=== PATIENT | male | born 1950 | race Caucasian/White ===

== ENCOUNTER 2022-04-24 15:11 | Outpatient (REF) | payer MEDICARE, BC, SELFPAY ==
[2022-04-24 19:39] LABS: ALT 47 U/L (16-63); AST 31 U/L (15-37); Albumin 3.3 g/dL (3.4-5.0); Alkaline Phosphatase 92 U/L (46-116); Anion Gap 12.1 mmol/L (3-11); BUN 14 mg/dL (7-18); Bilirubin, Total 0.2 mg/dL (0.2-1.0); CO2 23.9 mmol/L (21.0-32.0); CREATININE 1.1 mg/dL (0.70-1.30); Calcium 9.4 mg/dL (8.5-10.1); Calculated LDL 77 mg/dL (<100); Chloride 103 mmol/L (98-107); Cholesterol 116 mg/dL (<200); Estimated GFR 71.77 (mL/min/1.73m2); Glucose 95 mg/dL (74-106); HDL Cholesterol 28 mg/dL (40-60); Potassium 4.1 mmol/L (3.5-5.1); Sodium 139 mmol/L (136-145); TSH 0.87 uIU/mL (0.36-3.74); Total Protein 8.3 g/dL (6.4-8.2); Triglyceride 56 mg/dL (<150)
[2022-04-25 20:25] LABS: PSA, Screening 2.8 ng/mL (<=6.5)
[2022-04-28 10:46] LABS: Lyme Ab w Rflx to Lyme Confirm Positive (Negative)
[2022-04-28 11:53] LABS: Lyme IgG Ab Positive (Negative); Lyme IgM Ab Positive (Negative)
== END 2022-04-24 15:12 | disposition home or self-care (01) ==
LOC: NCHCN 15:11
PROVIDERS: PCP Internal Medicine; Visit Provider Internal Medicine
DX: R63.4 Abnormal weight loss (principal); D22.5 Melanocytic nevi of trunk; Z12.5 Encounter for screening for malignant neoplasm of prostate; R79.89 Other specified abnormal findings of blood chemistry; Z11.8 Encounter for screening for other infectious and parasitic diseases
CPT/HCPCS: 80053; 80061; 84153; 86617; 87798; 84443; 85025; 86618

== ENCOUNTER 2022-04-25 13:22 | Outpatient (REF) | payer MEDICARE, BC, SELFPAY ==
[2022-04-25 19:24] LABS: Abs Immature Grans 0.05 10^3/uL (0.0-0.06); Absolute Basophil Count 0.07 10^3/uL (0.0-0.2); Absolute Eosinophil Count 0.07 10^3/uL (0.0-0.7); Absolute Monocyte Count 0.68 10^3/uL (0.1-0.8); Basophils % 0.6; Eosinophils % 0.6; HCT 38.2 % (40.0-50.0); HGB 12.6 g/dL (13.5-17.5); Immature Grans % 0.5; Lymphocytes % 22.1; MCH 32.3 pg (27.0-33.0); MCV 98 fL (80-95); MPV 10.3 fL (8.0-11.0); Monocytes % 6.3; Neutrophils % 69.9; RDW-SD 43.8 fL; WBC 10.84 10^3/uL (4.4-10.8)
[2022-04-25 19:25] LABS: Absolute Neutrophil Count 7.58 10^3/uL (1.2-6.7)
[2022-04-25 19:30] LABS: Platelet Count 689 10^3/uL (130-400)
[2022-04-30 16:02] LABS: Anaplasma phagocytophilum Negative (Negative); B. miyamotoi PCR Negative (Negative); Babesia divergens/MO-1 Negative (Negative); Babesia duncani Negative (Negative); Babesia microti Negative (Negative); Ehrlichia chaffeensis Negative (Negative); Ehrlichia ewingii/canis Negative (Negative); Ehrlichia muris eauclairensis Negative (Negative)
== END 2022-04-25 13:23 | disposition home or self-care (01) ==
LOC: NCHCN 13:22
PROVIDERS: PCP Internal Medicine; Visit Provider Internal Medicine
DX: R63.4 Abnormal weight loss (principal); G31.84 Mild cognitive impairment of uncertain or unknown etiology; B60.01 Babesiosis due to Babesia microti
CPT/HCPCS: 87798; 85025

== ENCOUNTER 2022-05-20 16:10 | Outpatient (REF) | payer MEDICARE, BC, SELFPAY ==
[2022-05-20 19:34] LABS: HCT 43.7 % (40.0-50.0); HGB 14.4 g/dL (13.5-17.5); MCH 32.7 pg (27.0-33.0); MCV 99 fL (80-95); MPV 11.4 fL (8.0-11.0); Platelet Count 267 10^3/uL (130-400); RDW 13.5 % (11.8-14.1); RDW-SD 49.7 fL; WBC 8.12 10^3/uL (4.4-10.8)
[2022-05-20 19:45] LABS: Iron 91 ug/dL (65-175); Total Iron Binding Capacity 330 ug/dL (250-450); Transferrin Sat 28 % (20-55)
[2022-05-20 20:01] LABS: Ferritin 193 ng/mL (26-388)
== END 2022-05-20 16:11 | disposition home or self-care (01) ==
LOC: NCHCN 16:10
PROVIDERS: PCP Internal Medicine; Visit Provider Internal Medicine
DX: D64.9 Anemia, unspecified (principal)
CPT/HCPCS: 85027; 82728; 83540; 83550

== ENCOUNTER 2023-07-03 15:18 | Outpatient (REF) | payer MEDICARE, BC, SELFPAY ==
[2023-07-03 18:46] LABS: HCT 42.6 % (40.0-50.0); HGB 13.9 g/dL (13.5-17.5); MCH 32.2 pg (27.0-33.0); MCHC 32.6 % (32.0-36.0); MCV 99 fL (80-95); MPV 10.5 fL (8.0-11.0); Platelet Count 297 10^3/uL (130-400); RBC 4.32 10^6/uL (4.36-5.78); RDW-SD 47.3 fL; WBC 7.01 10^3/uL (4.4-10.8)
[2023-07-03 19:26] LABS: ALT 23 U/L (16-63); AST 20 U/L (15-37); Albumin 3.9 g/dL (3.4-5.0); Alkaline Phosphatase 81 U/L (46-116); Anion Gap 9.5 mmol/L (3-11); BUN 25 mg/dL (7-18); Bilirubin, Total 0.3 mg/dL (0.2-1.0); CO2 26.5 mmol/L (21.0-32.0); CREATININE 1.5 mg/dL (0.70-1.30); Calcium 9.2 mg/dL (8.5-10.1); Chloride 106 mmol/L (98-107); Estimated GFR 49.16 (mL/min/1.73m2); Glucose 90 mg/dL (74-106); Potassium 4.2 mmol/L (3.5-5.1); Sodium 142 mmol/L (136-145); TSH 1.14 uIU/Ml (0.36-3.74); Total Protein 7.7 g/dL (6.4-8.2); Vitamin B12 387 pg/mL (193-986)
[2023-07-06 10:34] LABS: PSA, Screening 1.7 ng/mL (<=6.5)
[2023-07-06 14:16] LABS: Albumin 57.2 % (55.8-66.1); Albumin g/dL 4.1 g/dL (3.6-5.2); Comment (See Note); Total Protein 7.1 g/dL (6.3-8.2)
[2023-07-06 15:50] LABS: Immunotyping, Serum (See Note)
== END 2023-07-03 15:19 | disposition home or self-care (01) ==
LOC: NCHCN 15:18
PROVIDERS: PCP Internal Medicine; Visit Provider Internal Medicine
DX: I10 Essential (primary) hypertension (principal); G30.9 Alzheimer's disease, unspecified; D64.9 Anemia, unspecified; Z12.5 Encounter for screening for malignant neoplasm of prostate
CPT/HCPCS: 80053; 84153; 85027; 82607; 84165; 84443; 86320

== ENCOUNTER → 2023-11-03 09:57 | Outpatient (BNVA) | payer MEDICARE, BC, SELFPAY | PROVIDERS: PCP Internal Medicine; Referring Provider Internal Medicine; Visit Provider Nurse Practitioner Adult Health | DX: G30.9 Alzheimer's disease, unspecified (principal); F02.80 Dementia in other diseases classified elsewhere, unspecified severity, without behavioral disturbance, psychotic disturbance, mood disturbance, and anxiety | CPT/HCPCS: 99205; G2212 ==

== ENCOUNTER → 2023-12-08 14:25 | Outpatient (BNVA) | payer MEDICARE, BC, SELFPAY | PROVIDERS: PCP Internal Medicine; Referring Provider Internal Medicine; Visit Provider Nurse Practitioner Adult Health | DX: G30.9 Alzheimer's disease, unspecified (principal); F02.80 Dementia in other diseases classified elsewhere, unspecified severity, without behavioral disturbance, psychotic disturbance, mood disturbance, and anxiety | CPT/HCPCS: 99215 ==

== ENCOUNTER → 2024-02-09 14:00 | Outpatient (BNVA) | payer MEDICARE, BC, SELFPAY | PROVIDERS: PCP Internal Medicine; Referring Provider Internal Medicine; Visit Provider Nurse Practitioner Adult Health | DX: G30.9 Alzheimer's disease, unspecified (principal); F02.80 Dementia in other diseases classified elsewhere, unspecified severity, without behavioral disturbance, psychotic disturbance, mood disturbance, and anxiety | CPT/HCPCS: 99214 ==

== ENCOUNTER 2024-06-17 14:50 | Outpatient (REF) | payer MEDICARE, BC, SELFPAY ==
[2024-06-17 19:20] LABS: Anion Gap 5.4 mmol/L (3-11); BUN 23 mg/dL (7-18); CO2 30.6 mmol/L (21.0-32.0); CREATININE 1.5 mg/dL (0.70-1.30); Calcium 9.1 mg/dL (8.5-10.1); Chloride 106 mmol/L (98-107); Estimated GFR 48.85 (mL/min/1.73m2); Glucose 85 mg/dL (74-106); Potassium 4.7 mmol/L (3.5-5.1); Sodium 142 mmol/L (136-145)
[2024-06-19 10:31] LABS: HIV-1/2 Ag & Ab Screen Negative (Negative)
[2024-06-20 13:28] LABS: Hepatitis C Ab w Rflx HCV PCR Negative (Negative)
== END 2024-06-17 14:51 | disposition home or self-care (01) ==
LOC: NCHCN 14:50
PROVIDERS: PCP Internal Medicine; Visit Provider Internal Medicine
DX: I10 Essential (primary) hypertension (principal); Z11.4 Encounter for screening for human immunodeficiency virus [HIV]
CPT/HCPCS: 80048; 86803; 87389

== ENCOUNTER → 2024-08-08 12:32 | Outpatient (BNVA) | payer MEDICARE, BC, SELFPAY | PROVIDERS: PCP Internal Medicine; Referring Provider Internal Medicine; Visit Provider Nurse Practitioner Adult Health | DX: G30.9 Alzheimer's disease, unspecified (principal); F02.80 Dementia in other diseases classified elsewhere, unspecified severity, without behavioral disturbance, psychotic disturbance, mood disturbance, and anxiety | CPT/HCPCS: 99214 ==

== ENCOUNTER 2024-08-09 14:18 | Outpatient (REF) | payer MEDICARE, BC, SELFPAY ==
[2024-08-09 20:22] LABS: Vitamin B12 1262 pg/mL (193-986)
== END 2024-08-09 14:19 | disposition home or self-care (01) ==
LOC: LBN 14:18
PROVIDERS: PCP Internal Medicine; Visit Provider Nurse Practitioner Adult Health
DX: R41.3 Other amnesia (principal)
CPT/HCPCS: 82607

== ENCOUNTER 2024-10-20 11:25 | Outpatient (REF) | payer MEDICARE, BC, SELFPAY ==
[2024-10-20 20:34] LABS: Iron 81 ug/dL (65-175); Total Iron Binding Capacity 269 ug/dL (250-450); Transferrin Sat 30 % (20-55)
[2024-10-20 20:48] LABS: Anion Gap 7.1 mmol/L (3-11); BUN 19 mg/dL (7-18); CO2 28.9 mmol/L (21.0-32.0); Calcium 9.0 mg/dL (8.5-10.1); Chloride 103 mmol/L (98-107); Estimated GFR 63.46 (mL/min/1.73m2); Ferritin 238 ng/mL (26-388); Glucose 79 mg/dL (74-106); Potassium 4.6 mmol/L (3.5-5.1); Sodium 139 mmol/L (136-145)
== END 2024-10-20 11:26 | disposition home or self-care (01) ==
LOC: NCHCN 11:25
PROVIDERS: PCP Internal Medicine; Visit Provider Internal Medicine
DX: D64.9 Anemia, unspecified (principal); I10 Essential (primary) hypertension
CPT/HCPCS: 80048; 82728; 83540; 83550

== ENCOUNTER → 2025-02-06 11:00 | Outpatient (BNVA) | payer MEDICARE, BC, SELFPAY | PROVIDERS: PCP Internal Medicine; Referring Provider Internal Medicine; Visit Provider Nurse Practitioner Adult Health | DX: G30.9 Alzheimer's disease, unspecified (principal); F02.80 Dementia in other diseases classified elsewhere, unspecified severity, without behavioral disturbance, psychotic disturbance, mood disturbance, and anxiety | CPT/HCPCS: 99214 ==